=== PATIENT | female | born 1965 | race Caucasian/White ===

== ENCOUNTER 2017-07-16 09:08 | Emergency (ER) | payer OTHER ==
[~2017-07-16] VITALS: Ht 160 cm; Wt 104.3 kg
--- NOTE | 2017-07-16 09:23 | NUR ---
Dr White at the bedside for eval and exam.
--- NOTE | 2017-07-16 09:36 | NUR ---
Patient discharged to home in stable conditon. Written and verbal after care instructions given. Patient verbalizes understanding of instructions.
== END 2017-07-16 09:50 | disposition home or self-care (01) ==
LOC: ER 09:08
DX: K04.7 Periapical abscess without sinus (principal); F90.9 Attention-deficit hyperactivity disorder, unspecified type
CPT/HCPCS: 99283; A4663